=== PATIENT | male | born 1955 | race Caucasian/White ===

== ENCOUNTER → 2022-11-04 | Outpatient (CLI) | payer MEDICARE ==
[2022-11-04 10:00] LABS: BASO % 0.5 % (0.0-1.0); EOS # 0.1 10*3/uL (0.0-0.4); EOS % 1.3 % (1.0-4.0); HEMATOCRIT 48.3 % (42.0-52.0); LYMPH # 1.2 10*3/uL (1.3-4.4); LYMPH % 13.9 % (27.0-41.0); MEAN CORPUSCULAR HGB 30.3 pg (27.0-31.0); MEAN CORPUSCULAR HGB CONC 32.9 g/dl (33.0-37.0); MONO # 0.6 10*3/uL (0.1-1.0); MONO % 7.7 % (3.0-9.0); NEUT # 6.4 10*3/uL (2.3-7.9); NEUT % 76.5 % (47.0-73.0); PLATELET COUNT AUTOMATED 349 10*3/uL (130-400); RED BLOOD COUNT 5.25 10*6/uL (4.50-5.90); RED CELL DISTRI WIDTH 12.7 % (0-14.5); WHITE BLOOD COUNT 8.4 10*3/uL (4.8-10.8)
[2022-11-04 10:16] LABS: URIC ACID 5.7 mg/dL (3.7-9.2)
[2022-11-04 14:13] LABS: BF LYMPHOCYTES 6 %; BF MACROPHAGES 4 %; BF NEUTROPHILS 90 %
[2022-11-05 06:08] LABS: HBSAG Negative (Negative); HEP B CORE AB, IGM Negative (Negative); HEPATITIS C ANTIBODY Non Reactive (Non Reactive)
[2022-11-05 12:07] LABS: ANTI-RNP ANTIBODIES 0.6 AI (0.0-0.9); CCP ANTIBODIES IGG/IGA 3 units (0-19)
[2022-11-05 15:07] LABS: ACID FAST SPEC PROCESSING Direct Inoculation (.)
[2022-11-08 01:06] LABS: DVVTMIXRFX CHG (NP); LUPUS DRVVT 49.1 sec (0.0-47.0); PTT-LA 41.3 sec (0.0-43.5)
[2022-11-08 02:06] LABS: LUPUS REFLEX INTERPRETATION Comment: (.)
== END | disposition home or self-care (01) ==
LOC: LAB 09:28
PROVIDERS: ATTEND Orthopaedic Surgery
DX: M25.561 Pain in right knee (principal); M25.461 Effusion, right knee; M17.11 Unilateral primary osteoarthritis, right knee; M23.91 Unspecified internal derangement of right knee; R53.83 Other fatigue; M79.604 Pain in right leg